=== PATIENT | female | born 1945 | race African-American/Black ===

== ENCOUNTER 2018-10-19 22:30 | Inpatient (IN) | payer MEDICARE ==
[2018-10-19] MEDS ORDERED: Diltiazem 125 MG/25 ML ONE (23:41)
[2018-10-20 00:07] LABS: ALT (SGPT) 8 U/L (8-55); AST (SGOT) 12 U/L (5-34); Albumin 3.6 g/dL (3.4-4.8); Alkaline Phosphatase 66 U/L (40-150); Anion Gap 13 mmol/L (10-20); BUN (Urea Nitrogen) 13 mg/dL (9.8-20.1); Bilirubin, Total 1.1 mg/dL (0.2-1.2); Calc. Creatinine Clearance 0 mL/min (70-130); Calcium 9.5 mg/dL (7.8-10.44); Carbon Dioxide 28 mmol/L (23-31); Chloride 108 mmol/L (98-107); Estimated GFR-MDRD 68; Globulin 3.6 g/dL (2.4-3.5); Glucose 110 mg/dL (83-110); Protein, Total 7.2 g/dL (6.0-8.3); Sodium 145 mmol/L (136-145)
[2018-10-20 00:24] LABS: #Basophils 0.2 thou/uL (0.0-0.2); #Eosinphils 0.1 thou/uL (0.0-0.7); #Lymphocytes 2.8 thou/uL (1.20-3.40); #Monocytes 0.7 thou/uL (0.11-0.59); #Neutrophils 3.8 thou/uL (1.40-6.50); %Basophils 2.1 % (0.0-1.0); %Eosinophils 0.9 % (0.0-10.0); %Lymphocytes 37.2 % (21.0-51.0); %Monocytes 9.3 % (0.0-10.0); %Neutrophils 50.5 % (42.0-75.0); Mean Corpuscular HGB CONC 31.9 g/dL (32.0-36.0); Mean Corpuscular Volume 90.8 fL (78.0-98.0); Platelet Count 93 thou/uL (130-400); Platelet Morphology Comment Appears Decreased; RBC Distribution Width 13.7 % (11.5-14.5); White Blood Cell (WBC) Count 7.5 thou/uL (4.8-10.8)
[2018-10-20 06:30] LABS: Troponin I 0.023 ng/mL (< 0.028)
[2018-10-20] MEDS ORDERED: Ondansetron PF 4 MG/2 ML Vial IVP PRN (07:27)
[2018-10-20] MEDS ORDERED: Loratadine 10 MG TAB PO PRN (07:27)
[2018-10-20] MEDS ORDERED: Artificial Tears 18 DROP/0.9 ML EA EYE PRN (07:27)
[2018-10-20] MEDS ORDERED: Sodium Chloride 0.65% Nasal 44 ML BOT EA NARE PRN (07:27)
[2018-10-20] MEDS ORDERED: Loperamide HCl 2 MG CAP PO PRN (07:27)
[2018-10-20] MEDS ORDERED: Calcium Carbonate 500 MG ChewTAB PO PRN (07:27)
[2018-10-20] MEDS ORDERED: Ondansetron ODT 4 MG TAB PO PRN (07:27)
[2018-10-20] MEDS ORDERED: Nitroglycerin 0.4 MG TAB (25 Tab Bottle) SL PRN (07:27)
[2018-10-20] MEDS ORDERED: Senokot S 8.6-50 MG TAB PO PRN (07:27)
[2018-10-20] MEDS ORDERED: Eucerin (Mineral Oil/Petrolatum,White) 30 gm Jar TOP PRN (07:27)
[2018-10-20] MEDS ORDERED: HYDROcodone/Acetaminophen 5/325 mg Tablet PO PRN (07:27)
[2018-10-20] MEDS ORDERED: Cepastat Lozenges 1 LOZ PO PRN (07:27)
[2018-10-20] MEDS ORDERED: Bisacodyl 5 MG TAB PO PRN (07:27)
[2018-10-20] MEDS ORDERED: Acetaminophen 325 MG TAB PO PRN (07:27)
[2018-10-20] MEDS ORDERED: Labetalol HCl 100 MG/20 ML VIAL SLOW IVP PRN (07:27)
[2018-10-20] MEDS ORDERED: Diabetic Tussin 200 MG/10 ML UDCUP PO PRN (07:27)
[2018-10-20] MEDS ORDERED: Bisacodyl 10 MG SUPP PR PRN (07:27)
[2018-10-20] MEDS ORDERED: Zolpidem Tartrate 5 MG TAB PO PRN (07:27)
[2018-10-20] MEDS ORDERED: Fleet Enema 133 ML BOT PR PRN (07:29)
[2018-10-20] MEDS ORDERED: Diltiazem 125 MG in Sodium Chloride 0.9% 100 ML IVPB SCH (07:30)
[2018-10-20] MEDS ORDERED: Famotidine 20 MG TAB ONE (11:33)
[2018-10-20] MEDS: Famotidine 20 MG TAB PO SCH ×2 (12:02→21:06)
[2018-10-20] MEDS: Docusate 100 MG CAP PO SCH ×2 (12:02→21:06)
[2018-10-20] MEDS: Carvedilol 6.25 MG TAB PO SCH ×2 (12:02→18:56)
[2018-10-20] MEDS: Polyethylene Glycol 3350 17 GM Packet PO SCH (12:03)
--- NOTE | 2018-10-20 13:56 | HP ---
PRIMARY CARE PHYSICIAN: Dr. Hector Valverde. REASON FOR ADMISSION: Atrial fibrillation with rapid ventricular response. HISTORY OF PRESENT ILLNESS: A 72-year-old female who has underlying history of chronic atrial fibrillation on chronic anticoagulation therapy. She is on chronic anticoagulation with Xarelto and she is taking Coreg and Cardizem CD for her rate control. The patient has seen Cardiology about three weeks ago. At that time, she was also found with atrial fibrillation, but rate was controlled. For last few days, the patient was experiencing constipation. She was trying multiple stool softener [id number] basis. She had milk of magnesia suppository and enema and she was not having any success at home and that is why she decided to come to emergency room for evaluation. Finally, in the emergency room, she had good large bowel movement, but the patient was found with atrial fibrillation with RVR. The patient was not having at that time chest pain, palpitation, dizziness, shortness of breath. She had a heart rate in 140s to 150s. She required Cardizem bolus and Cardizem drip. Even after that, her rate was variable and then we decided to keep this patient in the hospital. The patient denies any orthopnea, PND, or leg swelling. She denies any dizziness or syncope. She denies any cough, flu-like symptoms. She denies any excessive caffeinated products. She is reporting that she is taking all her medication as prescribed. She denies any anxiety or weight loss. REVIEW OF SYSTEMS: CONSTITUTIONAL: Negative for weight loss or gain, ability to conduct usual activities. SKIN: Negative for rash, itching. EYES: Negative for double vision, pain. ENT/MOUTH: Negative for nose bleeding, neck stiffness, pain, tenderness. CARDIOVASCULAR: Negative for palpitations, dyspnea on exertion, orthopnea. RESPIRATORY: Negative for shortness of breath, wheezing, cough, hemoptysis, fever or night sweats. GASTROINTESTINAL: Negative for poor appetite, abdominal pain, heartburn, nausea, vomiting, constipation, or diarrhea. GENITOURINARY: Negative for urgency, frequency, dysuria, nocturia. MUSCULOSKELETAL: Negative for pain, swelling. NEUROLOGIC/PSYCHIATRIC: Negative for anxiety, depression. ALLERGY/IMMUNOLOGIC: Negative for skin rash, bleeding tendency. Please see my HPI for pertinent positives and negatives. All other review of systems reviewed and negative except as mentioned in HPI. PAST MEDICAL HISTORY: Chronic atrial fibrillation, chronic anticoagulation, mild cognitive deficit/senile dementia, hypertension, obesity, and chronic thrombocytopenia. PAST SURGICAL HISTORY: Intestinal surgery for unclear etiology, bilateral lower extremity venous surgery. PAST PSYCHIATRIC HISTORY: Reviewed and negative. ALLERGIES: NO KNOWN DRUG ALLERGIES. CURRENT HOME MEDICATIONS: 1. Cardizem CD 240 mg daily. 2. Aricept 10 mg at bedtime. 3. Lasix 20 mg as needed. 4. Namenda 5 mg p.o. daily. 5. Lopressor 100 mg p.o. b.i.d. 6. Xarelto 10 mg daily. FAMILY HISTORY: Positive for hypertension among several family members. SOCIAL HISTORY: The patient lives at home with family. No history of tobacco, alcohol, or illicit drug abuse. EMERGENCY ROOM COURSE: The patient is given Cardizem bolus and subsequently Cardizem drip was started. PHYSICAL EXAMINATION: VITAL SIGNS: On arrival, blood pressure 158/96, pulse 143 irregular, temperature 98.0, saturation 93% on room air. Weight 135.2 kg. GENERAL: The patient is currently alert, awake. No obvious acute distress. HEENT: Head; normocephalic, atraumatic. Eyes; pupils round, reactive to light. Extraocular muscles intact. ENT, oropharynx within normal limits. Moist mucous membrane. No oral lesion. No pharyngeal erythema. No exudate. NECK: Supple. No JVD. No thyromegaly. No carotid bruit. LUNGS: Clear to auscultation without any rhonchi or rales. CARDIAC: S1 and S2, irregularly irregular. No murmur elicited. No gallop. No rub. ABDOMEN: Morbid obesity present. Bowel sounds present. Nontender. Nondistended. No organomegaly. No mass. No peritoneal sign. EXTREMITIES: No edema. Good distal pulsation. No calf tenderness. SKIN: No skin rash. HEMATOLOGICAL: No lymphadenopathy. NEUROLOGIC: Nonfocal examination. SIGNIFICANT LABORATORY DATA: EKG showing atrial fibrillation with RVR. CBC; WBC 7.5, hemoglobin 13.0, platelet 93. BMP; sodium 145, potassium 4.0, chloride 108, carbon dioxide 28, BUN 13, creatinine 0.97, glucose 110, and calcium 9.5. LFTs; AST 12, ALT 8, alkaline phosphatase 66, albumin 3.6. Cardiac enzyme negative x3. BNP 174.6. ASSESSMENT/PLAN: IMPRESSION: 1. Atrial fibrillation with rapid ventricular response. This patient has chronic atrial fibrillation. She is already on chronic anticoagulation therapy. Currently, her rate is elevated. At this point, we will continue with Cardizem drip. We will monitor for another 24 hours. If her heart rate does not get controlled, then we will involve Cardiology. We will also restart her home medication including Coreg and Cardizem CD 240 mg p.o. daily. The patient will continue her chronic anticoagulation with Xarelto 10 mg daily. 2. Alzheimer dementia. Continue Aricept 10 mg p.o. at bedtime and Namenda 5 mg p.o. daily. 3. Chronic diastolic heart failure, currently stable and euvolemic. Continue Lasix 20 mg p.o. daily. 4. Constipation. The patient's constipation has been improved. We will continue MiraLAX 17 g p.o. daily and Colace 100 mg p.o. b.i.d. 5. Morbid obesity. Dietary education given. Weight loss education given. Healthy lifestyle measure discussed with the patient. 6. Deep venous thrombosis prophylaxis. The patient is already on chronic anticoagulation therapy. 7. Gastrointestinal prophylaxis, Pepcid 20 mg p.o. b.i.d. CODE STATUS: The patient is full code. The patient's daughter is surrogate decision maker. DISPOSITION PLAN: Based on clinical course, we are expecting the patient's stay in hospital 2 to 4 days. Plan of care discussed with the family member at bedside in the emergency room. Job ID: [id number]
[2018-10-20 14:04] VITALS: BMI 46.4
[2018-10-20] MEDS: Donepezil HCl 10 MG TAB PO SCH (21:06)
[2018-10-21 05:49] LABS: INR-International Normal Ratio 1.1; PTT 39.5 SEC (22.9-36.1); Prothrombin Time 14.6 SEC (12.0-14.7)
[2018-10-21 05:52] LABS: #Basophils 0.1 thou/uL (0.0-0.2); #Eosinphils 0.2 thou/uL (0.0-0.7); #Lymphocytes 3.5 thou/uL (1.20-3.40); #Monocytes 0.6 thou/uL (0.11-0.59); #Neutrophils 2.6 thou/uL (1.40-6.50); %Eosinophils 3.4 % (0.0-10.0); %Lymphocytes 49.4 % (21.0-51.0); %Monocytes 8.8 % (0.0-10.0); %Neutrophils 36.4 % (42.0-75.0); Hemoglobin 11.8 g/dL (12.0-16.0); Mean Corpuscular Hemoglobin 28.4 pg (27.0-31.0); Mean Corpuscular Volume 91.4 fL (78.0-98.0); Mean Platelet Volume 10.9 fL (7.4-10.4); Platelet Count 96 thou/uL (130-400); RBC Distribution Width 13.6 % (11.5-14.5); Red Blood Cell (RBC) Count 4.18 mill/uL (4.20-5.40); White Blood Cell (WBC) Count 7.1 thou/uL (4.8-10.8)
[2018-10-21 06:05] LABS: Anion Gap 11 mmol/L (10-20); BUN (Urea Nitrogen) 12 mg/dL (9.8-20.1); Calc. Creatinine Clearance 116 mL/min (70-130); Calcium 9.4 mg/dL (7.8-10.44); Carbon Dioxide 24 mmol/L (23-31); Cardiac Risk 3.5 (Less than 4.5); Chloride 109 mmol/L (98-107); Cholesterol 156 mg/dl (< 200 Desired); Estimated GFR-MDRD 74; Glucose 85 mg/dL (83-110); HDL Cholesterol 44 mg/dL (>60 Neg Risk); LDL Cholesterol, Calculated 99 mg/dL; Potassium 4.1 mmol/L (3.5-5.1); Sodium 140 mmol/L (136-145); Triglycerides 63 mg/dL (Less than 150)
[2018-10-21] MEDS: Rivaroxaban 10 MG TAB PO SCH (06:08)
[2018-10-21 06:29] LABS: Bilirubin Small (Negative); Blood, Urine Negative (Negative); Clarity TURBID (Clear); Glucose, Urine (Dipstick) Negative (Negative); Leukocyte Small (Negative); Nitrite Negative (Negative); Protein, Urine (Dipstick) 30 mg/dL (Neg-Trace); Specific Gravity, Urine 1.036 (1.002-1.036); Urobilinogen 0.2 mg/dL (0.2-1.0)
[2018-10-21 06:32] LABS: Bacteria/HPF 1+ HPF (None Seen); Pathc Cast-AUWi Flag 2.03 (0-2.49); WBC/HPF 21-50 HPF (0-3)
[2018-10-21 06:52] LABS: Hyaline Casts/LPF 0-3 HYALINE CAST LPF (0-3 Hyaline); RBC/HPF 0-3 HPF (0-3)
[2018-10-21] MEDS: Docusate 100 MG CAP PO SCH ×2 (09:21→21:28)
[2018-10-21] MEDS: Polyethylene Glycol 3350 17 GM Packet PO SCH (09:21)
[2018-10-21] MEDS: Carvedilol 6.25 MG TAB PO SCH ×2 (09:21→17:38)
[2018-10-21] MEDS: Furosemide 20 MG TAB PO SCH (09:21)
[2018-10-21] MEDS: Famotidine 20 MG TAB PO SCH ×2 (09:21→21:28)
--- NOTE | 2018-10-21 13:18 | PDOC.PN ---
- Subjective Encounter Start Date: 10/21/18 Encounter Start Time: 08:00 -: old records requested/rev Patient seen and examined. No new complaints. No overnight events - Objective Resuscitation Status - Order Detail: 10/20/18 07:23 Resuscitation Status Routine Resuscitation Status: FULL: Full Resuscitation MAR Reviewed: Yes Vital Signs & Weight: Vital Signs (12 hours) Temp Pulse Resp BP Pulse Ox 10/21/18 11:56 98 F 72 18 127/56 L 94 L 10/21/18 09:21 77 10/21/18 07:53 98.4 F 77 18 120/58 L 96 10/21/18 07:50 96 10/21/18 04:00 97.8 F 85 18 118/75 92 L Weight Weight 285 lb I&O: 10/20/18 10/21/18 10/22/18 06:59 06:59 06:59 Intake Total 940 Balance 940 Result Diagrams: 10/21/18 05:20 10/21/18 05:20 EKG Reviewed by me: Yes (afib) Phys Exam - Physical Examination Constitutional: NAD HEENT: PERRLA, moist MMs, sclera anicteric Neck: no JVD, supple Respiratory: no wheezing, no rales, no rhonchi Cardiovascular: no significant murmur, irregular Gastrointestinal: soft, non-tender, no distention, positive bowel sounds obesity+ Musculoskeletal: no edema, pulses present Neurological: non-focal, normal sensation, moves all 4 limbs Lymphatic: no nodes Psychiatric: normal affect, A&O x 3 Skin: no rash, normal turgor Dx/Plan (1) Atrial fibrillation with RVR Code(s): I48.91 - UNSPECIFIED ATRIAL FIBRILLATION Status: Acute (2) Constipation Code(s): K59.00 - CONSTIPATION, UNSPECIFIED Status: Acute (3) Alzheimer's dementia Code(s): G30.9 - ALZHEIMER'S DISEASE, UNSPECIFIED; F02.80 - DEMENTIA IN OTH DISEASES CLASSD ELSWHR W/O BEHAVRL DISTURB Status: Chronic (4) Chronic anticoagulation Code(s): Z79.01 - [facility] (CURRENT) USE OF ANTICOAGULANTS Status: Chronic (5) Morbid obesity with BMI of 45.0-49.9, adult Code(s): E66.01 - MORBID (SEVERE) OBESITY DUE TO EXCESS CALORIES; Z68.42 - BODY MASS INDEX (BMI) 45.0-49.9, ADULT Status: Chronic (6) Thrombocytopenia Code(s): D69.6 - THROMBOCYTOPENIA, UNSPECIFIED Status: Chronic (7) Chronic stage c diastolic heart failure Code(s): I50.32 - CHRONIC DIASTOLIC (CONGESTIVE) HEART FAILURE Status: Chronic - Plan cont current plan of care, plan discussed w/ family * today will wean off cardizem drip and continue with her home meds * if her rate remains controlled today, then will consider discharge tomorrow * otherwise she will need adjustment in her meds * medication reviewed as below * symptomatic treatment * echo pending * discussed with family. Review of Systems - Review of Systems ENT: negative: Ear Pain, Ear Discharge, Nose Pain, Nose Discharge, Nose Congestion, Mouth Pain, Mouth Swelling, Throat Pain, Throat Swelling, Other Respiratory: negative: Cough, Dry, Shortness of Breath, Hemoptysis, SOB with Excertion, Pleuritic Pain, Sputum, Wheezing Cardiovascular: negative: chest pain, palpitations, orthopnea, paroxysmal nocturnal dyspnea, edema, light headedness, other Gastrointestinal: negative: Nausea, Vomiting, Abdominal Pain, Diarrhea, Constipation, Melena, Hematochezia, Other Genitourinary: negative: Dysuria, Frequency, Incontinence, Hematuria, Retention , Other Musculoskeletal: negative: Neck Pain, Shoulder Pain, Arm Pain, Back Pain, Hand Pain, Leg Pain, Foot Pain, Other Skin: negative: Rash, Lesions, Kyler, Bruising, Other - Medications/Allergies Allergies/Adverse Reactions: Allergies Allergy/AdvReac Type Severity Reaction Status Date / Time No Known Allergies Allergy Verified 10/20/18 14:29 Medications: Current Medications Acetaminophen (Tylenol) 650 mg PO Q4H PRN PRN Reason: Headache/Fever/Mild Pain (1-3) Hydrocodone Bitart/Acetaminophen ([place] 5/325) 1 tab PO Q4H PRN PRN Reason: Moderate Pain (4-6) Artificial Tears (Tears Naturale) 2 drop EA EYE PRN PRN PRN Reason: Dry Eyes Bisacodyl (Dulcolax) 10 mg NC DAILYPRN PRN PRN Reason: Constipation Bisacodyl (Dulcolax) 10 mg PO DAILYPRN PRN PRN Reason: Constipation Calcium Carbonate (Tums) 1,000 mg PO Q4H PRN PRN Reason: Heartburn or Indigestion Carvedilol (Coreg) 6.25 mg PO BID-WM [facility] Last Admin: 10/21/18 09:21 Dose: 6.25 mg Diltiazem HCl (Cardizem Cd) 240 mg PO DAILY [facility] Last Admin: 10/21/18 09:21 Dose: 240 mg Docusate Sodium (Colace) 100 mg PO BID [facility] Last Admin: 10/21/18 09:21 Dose: 100 mg Donepezil HCl (Aricept) 10 mg PO HS [facility] Last Admin: 10/20/18 21:06 Dose: 10 mg Famotidine (Pepcid) 20 mg PO BID [facility] Last Admin: 10/21/18 09:21 Dose: 20 mg Furosemide (Lasix) 20 mg PO DAILY [facility] Last Admin: 10/21/18 09:21 Dose: 20 mg Guaifenesin (Robitussin Sf) 200 mg PO Q4H PRN PRN Reason: Cough Labetalol HCl (Normodyne) 20 mg SLOW IVP Q4H PRN PRN Reason: SBP > 180 and HR >/= 70 Loperamide HCl (Imodium) 2 mg PO PRN PRN PRN Reason: Diarrhea/Loose Stools Loratadine (Claritin) 10 mg PO DAILYPRN PRN PRN Reason: Sinus Symptoms Memantine (Namenda) 10 mg PO DAILY [facility] Last Admin: 10/21/18 09:21 Dose: 10 mg Mineral Oil/White Petrolatum (Eucerin Cream) 0 gm TOP BIDPRN PRN PRN Reason: Dry Skin Nitroglycerin (Nitrostat) 0.4 mg SL Q5MIN PRN PRN Reason: Chest Pain Ondansetron HCl (Zofran Odt) 4 mg PO Q6H PRN PRN Reason: Nausea/Vomiting Ondansetron HCl (Zofran) 4 mg IVP Q6H PRN PRN Reason: Nausea/Vomiting Polyethylene Glycol (Miralax) 17 gm PO DAILY [facility] Last Admin: 10/21/18 09:21 Dose: 17 gm Rivaroxaban (Xarelto) 20 mg PO 0600 [facility] Last Admin: 10/21/18 06:08 Dose: 20 mg Senna/Docusate Sodium (Senokot S) 2 tab PO BID PRN PRN Reason: Constipation Sodium Chloride ([place] Nasal [place] 0.65%) 0 ml EA NARE QIDPRN PRN PRN Reason: Nasal Congestion Sodium Chloride (Flush - Normal Saline) 10 ml IVF Q12HR [facility] Last Admin: 10/21/18 09:22 Dose: 10 ml Sodium Chloride (Flush - Normal Saline) 10 ml IVF PRN PRN PRN Reason: Saline Flush Throat Lozenges (Cepastat Lozenges) 1 tex PO Q2H PRN PRN Reason: Sore Throat Zolpidem Tartrate (Ambien) 5 mg PO HSPRN PRN PRN Reason: Insomnia
[2018-10-21] MEDS: Donepezil HCl 10 MG TAB PO SCH (21:28)
[2018-10-22] MEDS: Rivaroxaban 10 MG TAB PO SCH (05:47)
[2018-10-22] MEDS: Docusate 100 MG CAP PO SCH (08:13)
[2018-10-22] MEDS: Carvedilol 6.25 MG TAB PO SCH (08:13)
[2018-10-22] MEDS: Furosemide 20 MG TAB PO SCH (08:14)
[2018-10-22] MEDS: Famotidine 20 MG TAB PO SCH (08:14)
[2018-10-22] MEDS: Polyethylene Glycol 3350 17 GM Packet PO SCH (08:14)
[2018-10-22 10:02] VITALS: BP 132/78; TEMP 97.8
--- NOTE | 2018-10-22 12:01 | DIS ---
DATE OF ADMISSION: 10/20/2018 DATE OF DISCHARGE: 10/22/2018 PRIMARY CARE PHYSICIAN: Dr. Hector Valverde. DISCHARGE DISPOSITION: Home. PRIMARY DISCHARGE DIAGNOSES: 1. Atrial fibrillation with rapid ventricular response, controlled. 2. Constipation, resolved. SECONDARY DISCHARGE DIAGNOSES: Chronic atrial fibrillation, chronic stage 3 diastolic heart failure, Alzheimer's dementia, chronic anticoagulation, morbid obesity with BMI of 45, thrombocytopenia. PRIMARY PROCEDURE/OPERATION: None. RADIOLOGICAL INVESTIGATION: Echocardiography. SIGNIFICANT LABORATORY DATA: WBC 7.1, hemoglobin 11.8, platelet 96. INR 1.1. Sodium 140, potassium 4.1, creatinine 0.91. BNP 174. LFT normal. Cardiac enzyme negative. TSH 1.97, LDL 99. Urinalysis suggestive of bladder infection. DISCHARGE MEDICATION: 1. Coreg 6.25 mg p.o. b.i.d. 2. Aricept 10 mg p.o. daily. 3. Namenda 10 mg p.o. daily. 4. Xarelto 20 mg p.o. daily. 5. Cardizem CD 240 mg p.o. daily. 6. Lasix 20 mg daily. 7. MiraLAX 17 g p.o. daily. CONTRAINDICATION: None. CODE STATUS: Full code. INPATIENT GRANTS ADMINISTRATOR: None. ALLERGIES: NO KNOWN DRUG ALLERGIES. DISCHARGE PLAN: Posthospital, the patient will follow up with Cardiology and primary care physician as instructed. HOSPITAL COURSE: A 72-year-old female, who was having severe constipation at home and thus she was straining. She tried Dulcolax suppository, Fleet enema and subsequently she had some response in the emergency room, but she was found with atrial fibrillation with RVR. She was treated with Cardizem drip while in hospital. She has chronic atrial fibrillation and with Cardizem drip for rate was under control. On discharge, we continued all her home medication. For her constipation we advised her to take MiraLAX on a daily basis. This patient did not have any UTI symptoms and that is why we did not pursue treatment for UTI given no fever and no leukocytosis. The patient had echocardiography, but official report was pending by the time of discharge. Cardizem drip was discontinued and with her home medication, the patient's rate was under control. At that point, we decided to let her go home today. I have seen and examined the patient at bedside today. Plan of care discussed with the patient's family member. REVIEW OF SYSTEMS: All review of systems reviewed with her and negative. PHYSICAL EXAMINATION: VITAL SIGNS: Currently stable and she has irregular rhythm. She is euvolemic. Currently temperature 97.8, pulse 74, irregular, respiratory rate 18, saturation 96%, blood pressure 132/78. Weight 281 pounds. GENERAL: The patient is currently alert, awake. No obvious acute distress. HEENT: Head normocephalic, atraumatic. Eyes; pupils round, reactive to light. Extraocular muscle intact. ENT,oropharynx within normal limits. Moist mucous membranes. NECK: Supple. No JVD. No thyromegaly. No carotid bruit. LUNGS: Clear without any rhonchi or rales. CARDIAC: S1, S2. Irregular. No murmur. ABDOMEN: Soft and benign. EXTREMITIES: No edema. Job ID: [id number]
== END 2018-10-22 10:20 | disposition home or self-care (01) | DRG 309 ==
LOC: ERS 22:30 → ERHOLD 10-20 01:33 → 2NO 10-20 13:42
PROVIDERS: ADMIT Hospitalist; ATTEND Hospitalist
DX: I48.91 Unspecified atrial fibrillation (principal); I50.32 Chronic diastolic (congestive) heart failure; Z68.42 Body mass index [BMI] 45.0-49.9, adult; I11.0 Hypertensive heart disease with heart failure; G30.9 Alzheimer's disease, unspecified; F02.80 Dementia in other diseases classified elsewhere, unspecified severity, without behavioral disturbance, psychotic disturbance, mood disturbance, and anxiety; K59.00 Constipation, unspecified; E66.01 Morbid (severe) obesity due to excess calories; D69.6 Thrombocytopenia, unspecified; Z79.01 Long term (current) use of anticoagulants; Z79.899 Other long term (current) drug therapy; Z98.890 Other specified postprocedural states
CPT/HCPCS: 36415; 80048; 80053; 80061; 81001; 83880; 84443; 84484; 85025; 85610; 85730; 93005; 93306; 94760; J7050

== ENCOUNTER 2019-01-08 00:01 | Observation (INO) | payer MEDICARE ==
[2019-01-08 00:38] LABS: #Basophils 0.2 thou/uL (0.0-0.2); #Eosinphils 0.1 thou/uL (0.0-0.7); #Lymphocytes 2.4 thou/uL (1.20-3.40); #Monocytes 0.9 thou/uL (0.11-0.59); #Neutrophils 5.4 thou/uL (1.40-6.50); %Basophils 1.9 % (0.0-1.0); %Eosinophils 0.7 % (0.0-10.0); %Lymphocytes 26.3 % (21.0-51.0); %Monocytes 10.4 % (0.0-10.0); %Neutrophils 60.6 % (42.0-75.0); Hemoglobin 12.7 g/dL (12.0-16.0); Mean Corpuscular HGB CONC 31.6 g/dL (32.0-36.0); Mean Corpuscular Hemoglobin 28.3 pg (27.0-31.0); Mean Corpuscular Volume 89.6 fL (78.0-98.0); Mean Platelet Volume 11.4 fL (7.4-10.4); Platelet Count 87 thou/uL (130-400); RBC Distribution Width 14.2 % (11.5-14.5); Red Blood Cell (RBC) Count 4.49 mill/uL (4.20-5.40); White Blood Cell (WBC) Count 8.9 thou/uL (4.8-10.8)
[2019-01-08 00:58] LABS: ALT (SGPT) 15 U/L (8-55); AST (SGOT) 13 U/L (5-34); Albumin 3.7 g/dL (3.4-4.8); Alkaline Phosphatase 72 U/L (40-150); Anion Gap 11 mmol/L (10-20); BUN (Urea Nitrogen) 13 mg/dL (9.8-20.1); Bilirubin, Total 1.5 mg/dL (0.2-1.2); CK (CPK) 71 U/L (29-168); Calc. Creatinine Clearance 0 mL/min (70-130); Calcium 9.3 mg/dL (7.8-10.44); Carbon Dioxide 27 mmol/L (23-31); Chloride 107 mmol/L (98-107); Estimated GFR-MDRD 58; Globulin 3.4 g/dL (2.4-3.5); Glucose 104 mg/dL (83-110); Potassium 4.3 mmol/L (3.5-5.1); Protein, Total 7.1 g/dL (6.0-8.3); Sodium 141 mmol/L (136-145)
[2019-01-08] MEDS ORDERED: Diltiazem HCl 125 MG, Admixture Fee 1 EACH in Sodium Chloride 0.9% 100 ML IVPB SCH (02:30)
[2019-01-08] MEDS ORDERED: Furosemide 40 MG/4 ML VIAL ONE (02:32)
[2019-01-08] MEDS ORDERED: Aspirin Chewable 81 MG TAB ONE (02:32)
[2019-01-08] MEDS ORDERED: Bisacodyl 10 MG SUPP PR PRN (02:57)
[2019-01-08] MEDS ORDERED: Acetaminophen 325 MG TAB PO PRN (02:57)
[2019-01-08] MEDS ORDERED: cloNIDine 0.1 MG TAB PO PRN (02:57)
[2019-01-08] MEDS ORDERED: Ondansetron PF 4 MG/2 ML Vial IVP PRN ×2 (02:57)
[2019-01-08] MEDS ORDERED: Senokot S 8.6-50 MG TAB PO PRN (02:57)
[2019-01-08] MEDS ORDERED: Diabetic Tussin 200 MG/10 ML UDCUP PO PRN (02:57)
[2019-01-08] MEDS ORDERED: Nitroglycerin 0.4 MG TAB (25 Tab Bottle) SL PRN (02:57)
[2019-01-08] MEDS ORDERED: Bisacodyl 5 MG TAB PO PRN (02:57)
[2019-01-08] MEDS ORDERED: hydrALAZINE 20 MG/ML VIAL SLOW IVP PRN (02:57)
[2019-01-08] MEDS ORDERED: Benzonatate 100 MG CAP PO PRN (02:57)
[2019-01-08] MEDS ORDERED: Polyethylene Glycol 3350 17 GM Packet PO PRN (03:03)
[2019-01-08] MEDS ORDERED: Diltiazem 125 MG in Sodium Chloride 0.9% 100 ML IVPB SCH (03:15)
[2019-01-08] MEDS ORDERED: Magnesium 2 GM/50 ML BAG (IN WATER) ONE (03:28)
[2019-01-08 04:06] LABS: Anion Gap 15 mmol/L (10-20); BUN (Urea Nitrogen) 12 mg/dL (9.8-20.1); Calc. Creatinine Clearance 0 mL/min (70-130); Calcium 9.1 mg/dL (7.8-10.44); Carbon Dioxide 25 mmol/L (23-31); Chloride 105 mmol/L (98-107); Estimated GFR-MDRD 64; Glucose 104 mg/dL (83-110); Sodium 141 mmol/L (136-145)
[2019-01-08 04:13] LABS: Troponin I 0.012 ng/mL (< 0.028)
--- NOTE | 2019-01-08 04:15 | HP ---
PRIMARY CARE PHYSICIAN: Dr. Valverde. [facility]IMARY [employer] COURT ADMINISTRATOR: Dr. Guardado. CHIEF COMPLAINT: Fast heart rate. HISTORY OF PRESENTING ILLNESS: Ms. Kapoor is a pleasant 73-year-old female with past medical history of atrial fibrillation, was on chronic anticoagulation as well as history of hypertension and dementia, who presented to the emergency room with above-mentioned complaint. History is mainly obtained by the patient herself who is somewhat of a poor historian, because of dementia and supplemented by her youngest daughter present at bedside, who is not of much help as she does not know much about her mother's medical history. Case has been discussed with admitting ER physician. According to the ER physician, the patient came to the hospital, because of fast heart rate. The patient reports that every time she is constipated and she strains her heart rate goes faster. She is otherwise compliant with her home medication including Xarelto, Cardizem and carvedilol. She denies any palpitations, chest pain, shortness of breath, but she did notice that her legs have been swollen more and more recently, but denies any dyspnea on exertion either. No recent fever, chills, cough, rhinorrhea, or sore throat. She denies any nausea, vomiting, diarrhea, abdominal pain, dysuria, frequency, or urgency. Upon presentation to the ER, her heart rate was 137 with a blood pressure of 157/92. She was saturating 99% on room air. EKG showed atrial fibrillation with RVR and her blood work showed mildly elevated BNP at 493. She was given 1 dose of Lasix and was started on Cardizem drip and is now being admitted for atrial fibrillation with RVR. Chest x-ray was unremarkable. PAST MEDICAL HISTORY: 1. Chronic atrial fibrillation. 2. Chronic anticoagulation. 3. Mild cognitive deficits/senile dementia. 4. Hypertension. 5. Obesity. 6. Chronic thrombocytopenia. PAST SURGICAL HISTORY: 1. Intestinal surgery for unknown reason. 2. Bilateral lower extremity venous surgery. PAST PSYCHIATRIC HISTORY: Reviewed and negative. ALLERGIES: NO KNOWN MEDICATION ALLERGIES. FAMILY HISTORY: Significant for hypertension among several family members. SOCIAL HISTORY: She lives at home with family. No history of drug, tobacco or alcohol abuse. CURRENT HOME MEDICATION: As listed in the ER records: 1. Xarelto 20 mg daily. 2. Carvedilol 6.25 t.i.d. 3. Donepezil 10 mg daily. 4. Diltiazem extended release 240 mg daily. 5. Lasix 20 mg p.r.n. 6. Potassium chloride 10 mEq daily. 7. Namenda 10 mg p.o. b.i.d. REVIEW OF SYSTEMS: A 14-point review of system is done, it is negative except for those mentioned in the history and physical. LABORATORY DATA: Her CBC shows WBCs 8.9, hemoglobin 12.7, platelet count of 87, which seems to be her baseline. Serum chemistry showed creatinine of 1.11, total bilirubin 1.5. Troponin and creatine kinase are normal. BNP 493. TSH normal. Magnesium level normal. IMAGIN. Chest x-ray by my review shows no evidence of pleural effusion, edema, or infiltrate. 2. A 12-lead EKG by my review shows atrial fibrillation with rapid ventricular rate. PHYSICAL EXAMINATION: VITAL SIGNS: Upon presentation, blood pressure 157/92, pulse of 137, respirations 25, temperature 98.9, saturating 99% on room air. GENERAL: No acute distress. Lying comfortably in bed. Awake, alert, and oriented x3. Very pleasant. HEENT: Mucous membrane is moist and pink. No oropharyngeal exudate or erythema. Head is normocephalic and atraumatic. Pupils are equal and reactive to light and accommodation. Extraocular movement intact. NECK: Supple without any lymphadenopathy, JVD, or bruit. CHEST: Clear to auscultation without any wheezing, rales, or rhonchi. Irregularly irregular, tachycardic, rhythm is noticed on cardiac auscultation. ABDOMEN: Obese, soft, nontender, nondistended. Positive bowel sounds. EXTREMITIES: Show non-pitting trace edema bilaterally in the lower extremities without any cyanosis or erythema. NEUROLOGICAL: Examination is nonfocal. SKIN: Free of any rashes or bruises. Warm and dry to touch. PSYCHIATRIC: Normal affect. IMPRESSION AND PLAN: 1. Atrial fibrillation with rapid ventricular rate. The patient will be continued on Cardizem drip for now. We will restart her carvedilol 3 times a day as well as her Cardizem 240 mg a day. Continue Xarelto for now. We will treat her constipation, which will likely help with her rate control as well. If the rate is not yet controlled or if she develops any symptoms because of that, we will consult her tyre retreader, Dr. Guardado in the morning. Currently, she is hemodynamically stable. 2. Constipation. We will use MiraLAX on a daily basis with p.r.n. laxatives as well. 3. Alzheimer's dementia. Continue Aricept and Namenda for now. 4. Chronic diastolic congestive heart failure. 5. Jpjgm-wk-tuywlje congestive diastolic heart failure. The patient has received Lasix in the ER and we will continue 40 mg of Lasix oral for now. She appears, however, comfortable and euvolemic for now. If this is an acute congestive heart failure, it is very mild. 6. Morbid obesity. Dietary education, weight loss. Suggestions were provided. 7. Deep venous thrombosis prophylaxis. The patient is currently already on chronic anticoagulation and we will add Pepcid 20 b.i.d. for gastrointestinal prophylaxis. CODE STATUS: Code status full code discussed with the patient. DISPOSITION: Ms. Kapoor is currently being admitted to the hospital with atrial fibrillation with RVR. ESTIMATED LENGTH OF STAY: At this time is less than 2 midnights. Further management will depend upon her clinical course. If her heart rate is not under control in that time period, she can be changed to inpatient. Job ID: [id number]
[2019-01-08 07:29] LABS: Troponin I 0.016 ng/mL (< 0.028)
--- NOTE | 2019-01-08 07:36 | RAD ---
Chest one view HISTORY: Dyspnea. Atrial fibrillation. COMPARISON: 12/08/2016. FINDINGS: Cardiac silhouette is magnified enlarged. Pulmonary vasculature is engorged with patchy bib asilar infiltrates. Linear atelectasis over the right middle lobe. No lobar consolidation or evidence of pneumothorax. playground monitor leads overlie the chest. IMPRESSION: Cardiomegaly. Probable CHF. Atherosclerosis.
[2019-01-08] MEDS ORDERED: Furosemide 20 MG/2 ML VIAL ONE (09:13)
[2019-01-08] MEDS: Furosemide 20 MG/2 ML VIAL SLOW IVP SCH (09:15)
[2019-01-08] MEDS: Polyethylene Glycol 3350 17 GM Packet PO SCH (09:15)
[2019-01-08] MEDS: Rivaroxaban 10 MG TAB PO SCH (09:15)
[2019-01-08] MEDS: Carvedilol 6.25 MG TAB PO SCH ×3 (09:15→20:56)
[2019-01-08] MEDS ORDERED: Fleet Enema 133 ML BOT PR SCH (12:15)
--- NOTE | 2019-01-08 12:49 | PDOC.PN ---
- Subjective Encounter Start Date: 01/08/19 Encounter Start Time: 11:00 Subjective: Denies CP, palpation, SOB -: Reports she is still constipated - Objective Resuscitation Status - Order Detail: 01/08/19 02:57 Resuscitation Status Routine Resuscitation Status: FULL: Full Resuscitation Discussed with: discussed w pt Vital Signs & Weight: Vital Signs (12 hours) Pulse BP 01/08/19 09:15 89 136/67 Result Diagrams: 01/08/19 00:27 01/08/19 03:27 Phys Exam - Physical Examination Constitutional: NAD HEENT: PERRLA, moist MMs Neck: no nodes, no JVD Respiratory: clear to auscultation bilateral irregularly irregular Gastrointestinal: soft, non-tender, positive bowel sounds Musculoskeletal: no edema, pulses present Neurological: non-focal, moves all 4 limbs Psychiatric: normal affect, A&O x 3 Skin: no rash, normal turgor Dx/Plan (1) Atrial fibrillation with RVR Code(s): I48.91 - UNSPECIFIED ATRIAL FIBRILLATION Status: Acute (2) Constipation Code(s): K59.00 - CONSTIPATION, UNSPECIFIED Status: Acute (3) Alzheimer's dementia Code(s): G30.9 - ALZHEIMER'S DISEASE, UNSPECIFIED; F02.80 - DEMENTIA IN OTH DISEASES CLASSD ELSWHR W/O BEHAVRL DISTURB Status: Chronic (4) Chronic anticoagulation Code(s): Z79.01 - POLITICAL SCIENCE RESEARCH ASSISTANT (CURRENT) USE OF ANTICOAGULANTS Status: Chronic - Plan cont current plan of care Awaiting cardiology consult, heart rate below 100's, drip stopped -: Ordered fleets enema x1, getting miralax daily -: Will recheck labs in AM * . Review of Systems - Review of Systems Gastrointestinal: Constipation - Medications/Allergies Allergies/Adverse Reactions: Allergies Allergy/AdvReac Type Severity Reaction Status Date / Time No Known Allergies Allergy Verified 10/20/18 14:29 Medications: Current Medications Acetaminophen (Tylenol) 650 mg PO Q4H PRN PRN Reason: Headache/Fever/Mild Pain (1-3) Benzonatate (Tessalon) 100 mg PO Q6H PRN PRN Reason: Cough Bisacodyl (Dulcolax) 10 mg PO DAILYPRN PRN PRN Reason: Constipation Carvedilol (Coreg) 6.25 mg PO TID NEGAR Last Admin: 01/08/19 09:15 Dose: 6.25 mg Clonidine (Catapres) 0.1 mg PO Q4H PRN PRN Reason: SBP > 160____ Diltiazem HCl (Cardizem Cd) 240 mg PO DAILY [facility] Last Admin: 01/08/19 09:15 Dose: 240 mg Furosemide (Lasix) 20 mg SLOW IVP DAILY [facility] Last Admin: 01/08/19 09:15 Dose: 20 mg Guaifenesin (Robitussin Sf) 200 mg PO Q4H PRN PRN Reason: Cough Hydralazine HCl (Apresoline) 10 mg SLOW IVP Q4H PRN PRN Reason: SBP > 180 and HR < 70 Diltiazem HCl 125 mg/ Sodium (Chloride) 125 mls @ 5 mls/hr IVPB INF [facility]; Protocol Nitroglycerin (Nitrostat) 0.4 mg SL Q5MIN PRN PRN Reason: Chest Pain Ondansetron HCl (Zofran) 4 mg IVP Q6H PRN PRN Reason: Nausea/Vomiting Polyethylene Glycol (Miralax) 17 gm PO DAILYPRN PRN PRN Reason: Constipation Polyethylene Glycol (Miralax) 17 gm PO DAILY [facility] Last Admin: 01/08/19 09:15 Dose: 17 gm Rivaroxaban (Xarelto) 20 mg PO 0600 [facility] Last Admin: 01/08/19 09:15 Dose: 20 mg Senna/Docusate Sodium (Senokot S) 2 tab PO BIDPRN PRN PRN Reason: Constipation Sodium Biphosphate/Sodium Phosphate (Fleet Enema) 133 ml NV NOW [facility] Stop: 01/08/19 14:15
[2019-01-08 16:11] VITALS: BMI 46.3
--- NOTE | 2019-01-09 01:03 | CON ---
DATE OF CONSULTATION: HISTORY OF PRESENT ILLNESS: Deana Kapoor is a 73-year-old black female, followed by Dr. Guardado. She has chronic atrial fibrillation and in March 2016, she underwent cardiac catheterization at [facility], which revealed normal coronary arteries. She now presents complaining of rapid heartbeat. When her family checked her blood pressure, they noted that her heart rate would be in the 120s to 130s. They attribute this to when she gets constipated that her heart rate tends to go up. She denies any palpitations, chest pain, or shortness of breath to me. In the emergency room, she was found to have a heart rate of 137 per minute. She was given a dose of Lasix, started on Cardizem drip, which now has been stopped and she is admitted for further evaluation. PAST MEDICAL HISTORY: Chronic atrial fibrillation, dementia, hypertension, normal coronary arteries, chronic thrombocytopenia. PAST SURGICAL HISTORY: Unknown abdominal surgery. SOCIAL HISTORY: She does not smoke or drink. MEDICATIONS: 1. Carvedilol 6.25 t.i.d. 2. Diltiazem 240 daily. 3. Aricept 10 mg at bedtime. 4. Furosemide 20 mg daily p.r.n. 5. Memantine 2 tablets b.i.d.. 6. MiraLAX 17 g daily. 7. Xarelto 20 mg daily. ALLERGIES: NONE. REVIEW OF SYSTEMS: A 10-point review of systems unremarkable. PHYSICAL EXAMINATION: VITAL SIGNS: Blood pressure 96/53, pulse of 57. HEENT: PERRL. NECK: Supple. CHEST: Clear. CARDIAC: S1 and S2 are normal without any S3, S4, or murmurs. ABDOMEN: Obese, normal bowel sounds. EXTREMITIES: Reveal trace pretibial edema. NEUROLOGIC: Grossly intact except for mild dementia. LABORATORY DATA: EKG revealed atrial fibrillation with rapid ventricular response of 127 per minute, low-voltage QRS, poor R-wave progression. Hemoglobin 12.7, hematocrit 40.2, white count 8900, platelets 87,000. Sodium 141, potassium 4.0, chloride 105, carbon dioxide 25, BUN 12, creatinine 1.03. Cardiac enzymes negative x2. BNP 493.1. IMPRESSION: 1. Chronic atrial fibrillation now with rapid ventricular response. Cardizem drip has been stopped and rate currently is controlled. 2. Alzheimer dementia. 3. Diastolic heart failure. 4. Morbid obesity. 5. Normal coronary arteries. PLAN: The patient will be restarted on her medications. She will be given medications for her constipation. Currently, her heart rate is well controlled. Job ID: [id number] [facility]
[2019-01-09] MEDS: Rivaroxaban 10 MG TAB PO SCH (05:39)
[2019-01-09 09:03] VITALS: BP 139/60; TEMP 98.2
[2019-01-09] MEDS: Carvedilol 6.25 MG TAB PO SCH (09:32)
[2019-01-09] MEDS: Furosemide 20 MG/2 ML VIAL SLOW IVP SCH (09:34)
[2019-01-09] MEDS: Polyethylene Glycol 3350 17 GM Packet PO SCH (09:34)
--- NOTE | 2019-01-10 04:58 | SS ---
DATE OF ADMISSION: 01/08/2019 DATE OF DISCHARGE: 01/09/2019 PROCEDURES: Chest x-ray; cardiomegaly, probable congestive heart failure. CONSULTANTS: Dr. Crane. HOSPITAL COURSE: Ms. Kapoor is a 73-year-old female who was admitted from the emergency room for further management of atrial fibrillation and RVR, initially was placed on some Cardizem drip. Eventually, the patient reverted back to rate controlled. The patient does have a history of atrial fib, has chronic anticoagulation as well as hypertension, and some dementia. The patient reported that she was trying to have a bowel movement and then started having a fast heart rate. She is compliant with home medication including Xarelto, Cardizem, and Coreg. The patient was able to have a bowel movement during this admission. Heart rate did convert back to controlled rate and did not go back into RVR, was seen by Dr. Crane, and was sent home to be followed up with primary care and Cardiology as an outpatient. The patient was examined prior to discharge. REVIEW OF SYSTEMS: The patient currently denies any chest pain, palpitations, shortness of breath, and abdominal pain. All other systems are reviewed and are negative unless mentioned in the HPI. PHYSICAL EXAMINATION: VITAL SIGNS: Temperature is 98.2, pulse is 68, blood pressure 139/60, respirations are 18, O2 sats are 92% on room air. CONSTITUTIONAL: The patient appears in no distress, appears pain-free, is alert oriented to person, place, and time. HEENT: Head is atraumatic and normocephalic. Eyes; eyelids are normal to inspection. Pupils are equally round and reactive to light. ENT: Mouth exam is normal. Mucous membranes are moist. NECK: Normal range of motion. Trachea is midline. RESPIRATORY/CHEST: Breath sounds are clear. CARDIOVASCULAR: Rate is irregularly irregular. ABDOMEN: The patient is nontender on palpation. Bowel sounds are heard. BACK: Normal range of motion. EXTREMITIES: Lower extremity, +1 edema. Sensation intact. Pedal pulses palpable bilaterally. NEUROLOGIC: The patient is alert and oriented to person, place, and time. SKIN: Warm and dry. Normal in color. PSYCH: Has a normal affect. ALLERGIES: NONE. HOME MEDICATIONS: Continued on discharge; 1. Coreg 6.25 mg p.o. t.i.d. 2. Aricept 10 mg p.o. at bedtime. 3. p.o. b.i.d. 4. Xarelto 20 mg p.o. daily. 5. Cardizem CD 240 mg daily. 6. Lasix 20 mg p.o. daily. 7. We have added MiraLAX 17 g p.o. daily. DISCHARGE DIAGNOSES: 1. Atrial fibrillation, rate controlled. 2. Constipation, resolved. 3. Alzheimer's dementia. 4. Chronic diastolic congestive heart failure. 5. Morbid obesity. DISPOSITION: Home. CONDITION: Disposition in stable condition. FOLLOWUP: The patient should follow up with Dr. Valverde within the next week. Job ID: [id number]
== END 2019-01-09 12:00 | disposition home or self-care (01) ==
LOC: ERS 00:01 → INTOOBSV 03:17 → ERHOLD 03:17 → 2NO 15:08
PROVIDERS: ADMIT Internal Medicine; ATTEND Internal Medicine
DX: I48.91 Unspecified atrial fibrillation (principal); K59.00 Constipation, unspecified; I11.0 Hypertensive heart disease with heart failure; I50.41 Acute combined systolic (congestive) and diastolic (congestive) heart failure; G30.9 Alzheimer's disease, unspecified; F02.80 Dementia in other diseases classified elsewhere, unspecified severity, without behavioral disturbance, psychotic disturbance, mood disturbance, and anxiety; D69.6 Thrombocytopenia, unspecified; E66.01 Morbid (severe) obesity due to excess calories; Z68.42 Body mass index [BMI] 45.0-49.9, adult; Z79.899 Other long term (current) drug therapy
CPT/HCPCS: 71045; 80048; 82550; 82962; 83735; 83880; 84484 ×2; 93005; 96365; 96366; 96368; 96375; 96376; 99285; G0378 ×2; 36415; 36416; 80053; 84443; 85025; J1940; J3475; J3490

== ENCOUNTER 2019-11-11 17:23 | Observation (INO) | payer MEDICARE ==
[2019-11-11] MEDS ORDERED: Diltiazem 125 MG/25 ML ONE (18:52)
[2019-11-11 19:10] LABS: INR-International Normal Ratio 1.1; PTT 36.3 SEC (22.9-36.1); Prothrombin Time 14.1 SEC (12.0-14.7)
--- NOTE | 2019-11-11 19:12 | RAD ---
Chest AP view INDICATION: Atrial fibrillation COMPARISON: January 08, 2019 FINDINGS: Lungs: There is subsegmental volume loss within the right midlung. Cardiac silhouette: There is prominent cardiomegaly with moderate pulmonary vascular congestion. Pulmonary vasculature: Moderate pulmonary vascular congestion Pleural spaces: No pleural effusion or pneumothorax is demonstrated. Upper abdomen: No abnormality seen. Osseous structures: No acute osseous abnormality. Additional findings: None. IMPRESSION: Prominent cardiomegaly with moderate pulmonary vascular congestion. Subsegmental volume loss within the right midlung.
[2019-11-11 19:21] LABS: #Basophils 0.2 thou/uL (0.0-0.2); #Eosinphils 0.1 thou/uL (0.0-0.7); #Lymphocytes 3.9 thou/uL (1.20-3.40); #Monocytes 0.8 thou/uL (0.11-0.59); #Neutrophils 4.5 thou/uL (1.40-6.50); %Eosinophils 0.7 % (0.0-10.0); %Lymphocytes 41.5 % (21.0-51.0); %Monocytes 8.3 % (0.0-10.0); %Neutrophils 47.5 % (42.0-75.0); Hemoglobin 13.4 g/dL (12.0-16.0); Mean Corpuscular HGB CONC 32.5 g/dL (32.0-36.0); Mean Corpuscular Hemoglobin 29.7 pg (27.0-31.0); Mean Corpuscular Volume 91.3 fL (78.0-98.0); Mean Platelet Volume 11.5 fL (7.4-10.4); Platelet Count 101 thou/uL (130-400); Platelet Morphology Comment Appears Decreased; RBC Distribution Width 12.9 % (11.5-14.5); RBC Morphology Normal; Red Blood Cell (RBC) Count 4.51 mill/uL (4.20-5.40); White Blood Cell (WBC) Count 9.4 thou/uL (4.8-10.8)
[2019-11-11 19:26] LABS: ALT (SGPT) 10 U/L (8-55); AST (SGOT) 16 U/L (5-34); Albumin 3.6 g/dL (3.4-4.8); Alkaline Phosphatase 66 U/L (40-110); Anion Gap 12 mmol/L (10-20); BUN (Urea Nitrogen) 14 mg/dL (9.8-20.1); Bilirubin, Total 1.1 mg/dL (0.2-1.2); Calc. Creatinine Clearance 0 mL/min (70-130); Calcium 9.3 mg/dL (7.8-10.44); Carbon Dioxide 25 mmol/L (23-31); Chloride 106 mmol/L (98-107); Estimated GFR-MDRD 67; Globulin 3.3 g/dL (2.4-3.5); Glucose 95 mg/dL (83-110); Potassium 4.8 mmol/L (3.5-5.1); Protein, Total 6.9 g/dL (6.0-8.3); Sodium 138 mmol/L (136-145)
[2019-11-11] MEDS ORDERED: Acetaminophen 325 MG TAB PO PRN (21:09)
[2019-11-11] MEDS ORDERED: Fleet Enema 133 ML BOT PR SCH (21:30)
[2019-11-11] MEDS ORDERED: Rivaroxaban 10 MG TAB PO SCH (21:30)
[2019-11-11] MEDS ORDERED: Carvedilol 25 MG TAB PO SCH (21:30)
[2019-11-11] MEDS ORDERED: Labetalol HCl 100 MG/20 ML VIAL ONE (21:31)
--- NOTE | 2019-11-11 21:55 | HP ---
PRIMARY CARE PHYSICIAN: Dr. Valverde. CHIEF COMPLAINT: Constipation. HISTORY OF PRESENT ILLNESS: This is a 74-year-old female with history of chronic atrial fibrillation on anticoagulation, hypertension, and dementia, who presents to the emergency room due to constipation. Most of the history is obtained from the patient's daughter secondary to the dementia. Her daughter reports 2 days ago, the onset of a feeling an urge to defecate; however, not passing much stool, and instead passing liquid stool. They have tried milk of magnesia twice, prune juice, and MiraLAX, and the patient continues to strain. The daughter notes that her heart rate goes up when she is at home and was straining. Last bowel movement today was liquid, last solid bowel movement was 3 or 4 days ago. The daughter brought her in today out of concern that the patient could be impacted. The patient and her daughter deny any nausea, vomiting, or abdominal pain. Denies shortness of breath or urine problems. They report that this has happened in the past; however, not recently. In the emergency room, the patient found to have a heart rate on arrival of 100 , at some point, it went up to 120, and she required diltiazem 20 mg IV. Because of this, hospitalist called for admission. ALLERGIES: NO KNOWN DRUG ALLERGIES. CURRENT MEDICATIONS: Reconciled with the bottles: 1. Xarelto 20 mg daily. 2. Carvedilol 25 mg b.i.d. 3. Donepezil 10 mg at bedtime. 4. Furosemide 20 mg daily. 5. Potassium chloride 10 mEq daily. 6. Namenda 10 mg b.i.d. 7. Digoxin 250 mcg daily. 8. Cartia XT 240 mg daily. PAST MEDICAL HISTORY: 1. Atrial fibrillation. 2. Dementia. 3. Hypertension. PAST SURGICAL HISTORY: 1. Intestinal surgery remotely for "twisted intestine". 2. Vein in her leg surgery. SOCIAL HISTORY: The patient lives with family, they report that she is never alone, her surrogate decision makers are her daughter. She is a full code. They deny any alcohol or tobacco. FAMILY HISTORY: Significant for hypertension and heart disease. REVIEW OF SYSTEMS: Positive only for the rectal fullness and sensation of needing to have a bowel movement, the diarrhea. Negative for nausea, vomiting, abdominal pain, or shortness of breath. All remaining review of systems are reviewed and negative. PHYSICAL EXAMINATION: VITAL SIGNS: Blood pressure 154/86, pulse 85, respirations 19, and saturation 96% on room air. GENERAL: Awake, alert, and responsive, answers questions appropriately. Not in apparent distress. HEENT: Her pupils are equal and round. She does have arcus senilis. Bilateral oral mucosa is pink and moist. NECK: Supple and nontender. LYMPHATICS: No palpable anterior, cervical, or supraclavicular lymphadenopathy. LUNGS: Clear to auscultation bilateral with good air movement. HEART: Normal S1 and S2. Irregularly irregular. No significant murmur. ABDOMEN: Soft. Present bowel sounds. Nontender and nondistended. EXTREMITIES: Trace pitting edema bilateral. SKIN: Some hyperpigmentation around her ankles. No visible skin rashes. NEURO: No focal deficits. PSYCH: Appears euthymic. VASCULAR: 2+ radial pulses. DIAGNOSTIC DATA: Chest x-ray is personally reviewed. It shows cardiomegaly, moderate pulmonary vascular congestion, and subsegmental volume loss within the right mid lung. EKG is reviewed. It shows atrial fibrillation with a normal axis, abnormal R- wave progression, a QT corrected of 482, and a rate of 121. LABORATORY DATA: CBC; white blood cell count 9.4, hemoglobin 13.4, hematocrit 41.2, and platelet count 101. INR 1.1. Renal panel; sodium 138, potassium 4.8, chloride 106, CO2 of 25, BUN 14, creatinine 0.98, and glucose 95. LFTs normal. IMPRESSION: 1. Atrial fibrillation with rapid ventricular response, now rate controlled in a patient with chronic atrial fibrillation on full anticoagulation. 2. Hypertension, unknown control. 3. Dementia. 4. Constipation. PLAN: 1. Observation overnight in the hospital. 2. Monitor on telemetry. Continue her usual medications, starting with carvedilol tonight as she did miss this dose. Continuing her Xarelto, which she also missed at dinnertime. We will dose that for tonight. 3. Fleet Enema, one dose of lactulose now and p.r.n. lactulose to address the constipation. 4. Continuing her usual home medications. 5. Anticipate if the patient remains rate controlled overnight that she can be discharged to home in the morning, with followup both with Dr. Valverde, her primary care provider and Dr. Guardado, her hospice registered nurse. 6. If the patient is not rate controlled, I anticipate a consultation with Cardiology will be needed. 7. DVT prophylaxis - fully anticoagulated with Xarelto. 8. GI prophylaxis - not indicated Reviewed the plan of care with patient and her daughter. No questions or further needs at the end of evaluation. The patient is at high risk given age, comorbidities, and current presentation. Job ID: [id number] [facility]
[2019-11-11 23:42] VITALS: BMI 41.5
[2019-11-12 05:10] LABS: Anion Gap 9 mmol/L (10-20); BUN (Urea Nitrogen) 13 mg/dL (9.8-20.1); Calc. Creatinine Clearance 109 mL/min (70-130); Calcium 9.1 mg/dL (7.8-10.44); Carbon Dioxide 28 mmol/L (23-31); Chloride 107 mmol/L (98-107); Estimated GFR-MDRD 79; Glucose 90 mg/dL (83-110); Potassium 4.2 mmol/L (3.5-5.1); Sodium 140 mmol/L (136-145)
[2019-11-12] MEDS ORDERED: Potassium Chloride 10 MEQ TAB PO SCH (08:00)
[2019-11-12] MEDS ORDERED: Carvedilol 25 MG TAB PO SCH (08:00)
[2019-11-12 08:10] VITALS: BP 150/69; TEMP 98.2
[2019-11-12] MEDS ORDERED: Digoxin 0.25 MG TAB PO SCH (09:00)
[2019-11-12] MEDS ORDERED: Furosemide 20 MG TAB PO SCH (09:00)
--- NOTE | 2019-11-12 09:16 | DIS ---
DATE OF ADMISSION: 11/11/2019 DATE OF DISCHARGE: 11/12/2019 PRIMARY CARE PROVIDER: Dr. Hector Valverde. DISPOSITION: Discharged home. FINAL DIAGNOSES: 1. Constipation. 2. Atrial fibrillation. 3. Hypertension. 4. Dementia. 5. Chronic anticoagulation. DISCHARGE MEDICATIONS: 1. MiraLAX 17 g in water daily. 2. Coreg 25 mg twice a day. 3. Lasix 20 mg a day. 4. Digoxin 250 mcg a day. 5. Aricept 10 mg a day. 6. Potassium chloride 10 mEq a day. 7. Xarelto 20 mg p.o. daily. ALLERGIES: NO KNOWN DRUG ALLERGIES. CODE STATUS: Full. PENDING AT TIME OF DISCHARGE: Nothing. DIET: Heart healthy. HOSPITAL COURSE: The patient referred to the Hospitalist Service by [facility] after being seen for constipation, noted to have a rapid heart rate. The patient had missed her Coreg. She was placed in the hospital overnight. She had a bowel movement. Her heart rate is controlled. She has been seen and examined. I have discussed it with the family. They are comfortable with taking her home. Comprehensive metabolic profile normal. APTT 36.3. CBC unremarkable except for a platelet count of 101. Cardiorespiratory exam is unremarkable except for controlled atrial fibrillation. Vital signs are stable. She is discharged for followup with Dr. Valverde in 3 days. Job ID: [id number]
[2019-11-12] MEDS ORDERED: Rivaroxaban 10 MG TAB PO SCH (18:00)
[2019-11-12] MEDS ORDERED: Donepezil HCl 10 MG TAB PO SCH (21:00)
--- NOTE | 2019-11-17 12:22 | EKG ---
Test Reason : Blood Pressure : / mmHG Vent. Rate : 121 BPM Atrial Rate : 163 BPM P-R Int : 000 ms QRS Dur : 106 ms QT Int : 340 ms P-R-T Axes : 000 -29 032 degrees QTc Int : 482 ms Atrial fibrillation with rapid ventricular response with premature ventricular or aberrantly conducte d complexes Low voltage QRS Cannot rule out Anterior infarct , age undetermined Abnormal ECG Confirmed by MAKAYLA TORRE ([id number]), content editor LAYLA COOPER ([id number]) on 11/17/2019 12:21:58 PM Referred By: Confirmed By:MAKAYLA Garza
== END 2019-11-12 09:44 | disposition home or self-care (01) ==
LOC: ERS 17:23 → 2SW 20:29
PROVIDERS: ADMIT Family Medicine; ATTEND Family Medicine
DX: K59.00 Constipation, unspecified (principal); I48.91 Unspecified atrial fibrillation; I10 Essential (primary) hypertension; F03.90 Unspecified dementia, unspecified severity, without behavioral disturbance, psychotic disturbance, mood disturbance, and anxiety; Z79.01 Long term (current) use of anticoagulants; Z79.899 Other long term (current) drug therapy; Z98.890 Other specified postprocedural states
CPT/HCPCS: 71045; 80048; 80053; 84484; 85025; 85610; 85730; 93005; 96374; 96375; 99285; G0378 ×3; 36415

== ENCOUNTER 2023-07-31 17:52 | Emergency (ER) | payer MEDICARE, OTHER ==
[2023-07-31 18:35] LABS: Hematocrit 41.9 % (36.0-47.0); Hemoglobin 13.3 g/dL (12.0-16.0); Mean Corpuscular HGB CONC 31.7 g/dL (32.0-36.0); Mean Corpuscular Hemoglobin 29.3 pg (27.0-31.0); Mean Corpuscular Volume 92.3 fl (78.0-98.0); Mean Platelet Volume 12.5 fL (7.4-10.4); RBC Distribution Width 14.2 % (11.5-14.5); Red Blood Cell (RBC) Count 4.54 mill/uL (4.20-5.40); White Blood Cell (WBC) Count 9.3 10x3/uL (4.8-10.8)
[2023-07-31 18:36] LABS: Delete Auto Diff?? YES; Platelet Count 113 10x3/uL (130-400)
[2023-07-31 18:59] LABS: CellaVision Operator ID LAB.MJL; Platelet Adequacy Comment Platelets Decreased; RBC Morphology Within Normal Limits; Troponin I 0.022 ng/mL (< 0.028)
[2023-07-31 20:07] LABS: Albumin 3.8 g/dL (3.4-4.8)
[2023-07-31 20:08] LABS: Calcium 9.4 mg/dL (7.8-10.44); Chloride 107 mmol/L (98-107); Potassium 4.4 mmol/L (3.5-5.1); Sodium 141 mmol/L (136-145)
[2023-07-31 20:09] LABS: Globulin 3.5 g/dL (2.4-3.5); Glucose 102 mg/dL (83-110); Protein, Total 7.3 g/dL (5.8-8.1)
[2023-07-31 20:10] LABS: Carbon Dioxide 26 mmol/L (23-31)
[2023-07-31 20:11] LABS: Anion Gap 12 mmol/L (10-20); Bilirubin, Total 1.1 mg/dL (0.2-1.2)
[2023-07-31 20:12] LABS: Alkaline Phosphatase 66 U/L (40-110); Calc. Creatinine Clearance 0 mL/min (70-130); Estimated GFR 58
[2023-07-31 20:13] LABS: BUN (Urea Nitrogen) 16 mg/dL (9.8-20.1)
[2023-07-31 20:14] LABS: AST (SGOT) 16 U/L (5-34)
[2023-07-31 20:15] LABS: ALT (SGPT) 11 U/L (8-55); Magnesium 2.1 mg/dL (1.6-2.6)
[2023-08-01 00:05] LABS: Bacteria/HPF None Seen HPF (None Seen); Bilirubin Negative (Negative); Blood, Urine 1+ (Negative); Calcium Oxalate Crystals 1+ HPF (None Seen); Clarity Turbid (Clear); Glucose, Urine (Dipstick) Normal (Negative); Ketone, Urine Negative (Negative); Leukocyte 25 Leu/uL (Negative); Nitrite Negative (Negative); Protein, Urine (Dipstick) 30 mg/dL (Neg-Trace); Squamous Epithelial 21-50 HPF (0-3); pH, Urine 5.5 (5.0-9.0)
== END 2023-08-01 01:38 | disposition left against medical advice (07) ==
LOC: ERS 17:52
DX: I48.91 Unspecified atrial fibrillation (principal); R41.82 Altered mental status, unspecified
CPT/HCPCS: 36415; 70450; 80053; 81001; 83735; 83880; 84484; 85025; 93005